=== PATIENT | male | born 1965 | race Asian ===

== ENCOUNTER 2017-06-14 21:04 | Emergency (ER) | payer OTHER ==
[2017-06-15 00:15] LABS: BASOPHIL % 0.3 % (0-2); PLATELET COUNT 193 x10^3mcL (130-400)
[2017-06-15 00:19] LABS: CALCIUM 9.1 mg/dL (8.5-10.1); CARBON DIOXIDE 29.7 mmol/L (21-32); CREATININE SERUM 1.4 mg/dL (0.7-1.3); POTASSIUM SERUM 4.4 mmol/L (3.5-5.1)
[2017-06-15 00:23] LABS: ALBUMIN 3.7 g/dL (3.4-5.0); BILIRUBIN TOTAL 0.7 mg/dL (0.20-1.00); TOTAL PROTEIN, SERUM 7.9 g/dL (6.4-8.2)
[2017-06-15 01:41] VITALS: BP 132/79
== END 2017-06-15 01:41 | disposition home or self-care (01) ==
LOC: ED 21:04
PROVIDERS: Emergency Medicine
DX: N23 Unspecified renal colic (principal); N28.9 Disorder of kidney and ureter, unspecified; N13.30 Unspecified hydronephrosis
CPT/HCPCS: J1885; J2270; J2405; J7030

== ENCOUNTER 2017-07-09 12:43 | Inpatient (IN) | payer OTHER ==
[~2017-07-09] VITALS: Ht 170.2 cm; Wt 66.8 kg
--- NOTE | 2017-07-09 13:45 | NUR ---
PT RETURNED TO LOBBY PENDING ROOM AVAILABILITY. VSS. RESPS E/U. NO S/S OF DISTRESS NOTED. NIHSS 0. NO NEUROLOGICAL DEFICITS NOTED AT THIS TIME. 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 NO ARM DRIFTS. NO FACIAL DROOP.
--- NOTE | 2017-07-09 15:29 | NUR ---
PT AMULATORY TO BED 7 WITH STEADY GAIT C/O MEMORY LOSS. AWAITING DR GAITAN.
--- NOTE | 2017-07-09 15:40 | NUR ---
DR HENSON AT BEDSIDE.
--- NOTE | 2017-07-09 15:52 | NUR ---
BACK FROM CT
--- NOTE | 2017-07-09 15:55 | NUR ---
REPORT GIVEN TO ANTIONE, ENDORSED PT CARE ACCORDINGLY.
[2017-07-09 16:14] LABS: BASOPHIL % 0.4 % (0-2); PLATELET COUNT 232 x10^3mcL (130-400); RED CELL DISTRIBUTION WIDTH 13.1 % (11.5-14.5)
[2017-07-09 16:27] LABS: SODIUM SERUM 140 mmol/L (136-145)
[2017-07-09 16:28] LABS: CALCIUM 9.3 mg/dL (8.5-10.1); CARBON DIOXIDE 30.7 mmol/L (21-32); CHLORIDE SERUM 104 mmol/L (98-107); GFR1 > 60 mL/min; GLUCOSE SERUM 101 mg/dL (74-106); POTASSIUM SERUM 4.2 mmol/L (3.5-5.1)
[2017-07-09 16:30] LABS: TOTAL PROTEIN, SERUM 8.6 g/dL (6.4-8.2)
[2017-07-09 16:31] LABS: ALKALINE PHOSPHATASE 73 U/L (46-116); ALT/SGPT 31 U/L (16-63); AST/SGOT 21 U/L (15-37)
[2017-07-09] MEDS ORDERED: LIPITOR10 MG (16:31)
--- NOTE | 2017-07-09 16:38 | NUR ---
REPORT GIVEN TO JAIME
--- NOTE | 2017-07-09 17:19 | NUR ---
REC'D PT FROM ER VIA [facility]. PT IS AAOX3, CANNOT RECALL DATE AT THIS TIME. C/O MILD DIZZINESS. NO WEAKNESS NOTED. TELE #9 SR. DENIES PAIN. RESP EVEN AND UNLABORED. NO SOB NOTED. IV NOTED TO RAC. INTACT AND PATENT. ORIENTED PT TO CALL LIGHT. BED IN LOWEST POSITION. WILL ENDORSE TO PRIMARY RN.
[2017-07-09 17:30] VITALS: BP 145/82
[2017-07-09 17:34] LABS: MAGNESIUM 2.2 mg/dL (1.8-2.4); PHOSPHOROUS 3.7 mg/dL (2.5-4.9)
[2017-07-09 17:40] LABS: CHOLESTEROL/HDL RATIO 3.2
--- NOTE | 2017-07-09 17:40 | NUR ---
RECEIVED REPORT FROM ALEJANDRO YING ASSUMING PT CARE RESPONSABILITY. RESTING COMFORTABLY AT THIS TIME. DENIES ANY DISCOMFORT. REPORTS SOME LIGHT HEADEDNESS, INSTRUCTED NOT TO GET OOB UNASSISTED. URINAL PLACED AT BEDSIDE. CALL LIGHT IN REACH NEEDS ATTENDED TO.
[2017-07-09 17:43] LABS: T3 TOTAL 1.13 ng/mL
[2017-07-09 18:13] LABS: FREE T4 1.05 ng/dL (0.76-1.46); FREE THYROXINE INDEX 3.2 ug/dL (1.4-4.5); T4(THYROXINE) 9.5 ug/dL (4.7-13.3)
--- NOTE | 2017-07-09 18:45 | NUR ---
PT RESTING AT THIS TIME. DENIES ANY DISCOMFORT AT THIS TIME. CALL LIGHT IN REACH NEEDS ATTENDED TO.
--- NOTE | 2017-07-09 19:35 | NUR ---
PT IS A/O X3, NAME, PLACE AND REASON TO COME TO HOSPITAL BUT DON'T RECALL THE YEAR, PT STATE HE HAD SAME PROBLEM ONCE BEFORE, NEURO CHECK DONE, PT HAS NO FACIAL DROOP NOTED, PUPIL EQUAL REACT TO LIGHT, NO WEAKNESS NOTED ON ALL EXTREMITIES, PT IS ON TELE 9, NSR, DENY ANY CHEST PAIN OR DISCOMFORT, BOWEL SOUND PRESENT ALL 4 QUADRANTS, NO DISTENTION, NO TENDER. PEDAL PULSE PRESENT BOTH FEET, NO EDEMA, IV AT RIGHT AC, NO LEAKING, NO INFILTRATION. ALL ADLS ASSIST, ALL NEED MET, CALL LIGHT IN REACH, WILL CONTINUE TO MONITOR.
--- NOTE | 2017-07-09 19:55 | NUR ---
TALKED TO DR. LIRIANO, REGARDING THE LIPITOR ORDER AT 1900 AND 2100, STATE SHE WANT PT TO TAKE 80MG LIPTIO AT 1900 TONIGHT AND START 40 MG AT 2100 TOMORROW, ORDER RECIEVED AND CARRIED OUT. WILL CONTINUE TO MONITOR THE PT.
[2017-07-09 23:05] LABS: UA SPECIFIC GRAVITY 1.015 (1.005-1.035); microscopic required? YES; urine erythrocyte 2+ (NEGATIVE)
--- NOTE | 2017-07-10 05:12 | NUR ---
PT IS A/O X4, NO FACIAL DROOPING, PUPIL EQUAL REACT TO LIGHT, NO WEAKNESS NOTED, PT C/O MILD HEADAHCE, TYLENOL IS GIVEN. DENY ANY RESPIRATORY DISTRESS, IV AT RIGHT AC, NO LEAKING, NO INFILTRATION. ALL ADLS ASSIST, ALL NEED MET, CALL LIGHT IN REACH, WILL CONTINUE TO MONITOR.
[2017-07-10 05:51] VITALS: BP 114/68
--- NOTE | 2017-07-10 07:38 | NUR ---
RECEIVED PT LAYING IN BED ASLEEP. NO APPARENT SIGNS OF ACUTE DISTRESS NOTED. RESPIRATIONS EVEN AND UNLABORED. IV TO RAC APPEARS PATENT AND INFUSING WELL NO SIGNS OF SWELLING OR REDNESS. INFORMATION BOARD UPDATED. CALL LIGHT WITHIN REACH. BED IN LOWEST POSITION. WILL CONTINUE TO MONITOR
--- NOTE | 2017-07-10 08:45 | NUR ---
AM ROUNDS DONE. PER DR. YOO, PT WILL PROBABLY D/C TOMORROW AND STAY FOR CONTINUED MONITORING. WILL DO CONTINUED DIAGNOSTIC TESTING THORUGHOUT THE DAY. PT AAOx4. CALL LIGHT WITHIN REACH. BED IN LOWEST POSITION. WILL CONTINUE TO MONITOR
[2017-07-10 09:18] VITALS: BP 127/72
[2017-07-10 12:48] VITALS: BP 121/74
--- NOTE | 2017-07-10 16:38 | NUR ---
PT SITTING IN BED CALM AND QUIETLY. DENIES PAIN. ADMITS TO SLIGHT LIGHTHEADEDNESS. SPOKE TO DR. RATLIFF WHO IS COVERING FOR DR. MONTALVO, AND INQUIRED ABOUT PLAN OF CARE OR ANY OTHER TESTS THAT MAY BE SCHEDULED FOR THE PT. HE STATED HE WOULD LOOK INTO IT. RELAYED THE MESSAGE TO PT. VERBALIZED HIS UNDERSTANDING. CALL LIGHT WITHIN REACH. BED IN LOWEST POSITION. WILL CONTINUE TO MONITOR
[2017-07-10 17:37] VITALS: BP 116/77
--- NOTE | 2017-07-10 20:39 | NUR ---
RECEIVED PT IN BED AAOX4, PT DENY PAIN AT THE MOMENT , LUNG SOUNDS CTA , ABD SOFT BS ACTIVE X4 QUADRANT , PT'S ON TELE NUMBER 9 THAT SHOWS NSR , CALL LIGHT WITHIN PT'S REACH , WILL CON'T TO MONITOR AND ASSIST PT WITH CARE .
--- NOTE | 2017-07-10 20:55 | NUR ---
PATIENT'S PLAN OF CARE WAS DISCUSSED AND REVIEWED WITH SUPERVISOR PAPER TESTING: PATTY PENA I HAVE REVIEWED THE DATA COLLECTION BY SUPERVISOR PAPER TESTING (NAME): PATTY PENA ENTERED ON (DATE/TIME): 07/10 2038 I CONCUR WITH THE DATA AND ANY EXCEPTIONS OR COMMENTS ARE LISTED BELOW:
[2017-07-10 21:50] VITALS: BP 135/67
[2017-07-11 05:09] VITALS: BP 108/62
--- NOTE | 2017-07-11 06:26 | NUR ---
NO CHANGES OF CONDITION NOTED , ALL DUE MEDS GIVEN NO REACTION NOTED, PIV INTACT INFUSING WELL , TELE NSR .
[2017-07-11 07:49] LABS: BASOPHIL % 0.6 % (0-2); PLATELET COUNT 163 x10^3mcL (130-400); RED CELL DISTRIBUTION WIDTH 13.1 % (11.5-14.5)
--- NOTE | 2017-07-11 07:55 | NUR ---
AWAKE,ALERT AND ORIENTED. DENIES ANY PAIN NO WEAKNESS NOTED. AMBULATED IN THE BATHROOM AND VOIDING WELL. CALL LIGHT W/ IN REACH.ATE BREAKFAST WELL. NO ACUTE DISTRESS NOTED. WILL CONT. PLAN OF CARE.
[2017-07-11 08:09] LABS: CALCIUM 8.8 mg/dL (8.5-10.1); CARBON DIOXIDE 29.3 mmol/L (21-32); CHLORIDE SERUM 106 mmol/L (98-107); CREATININE SERUM 0.9 mg/dL (0.7-1.3); GFR1 > 60 mL/min; GLUCOSE SERUM 91 mg/dL (74-106); MAGNESIUM 2.1 mg/dL (1.8-2.4); PHOSPHOROUS 3.5 mg/dL (2.5-4.9); POTASSIUM SERUM 4.3 mmol/L (3.5-5.1); SODIUM SERUM 141 mmol/L (136-145)
--- NOTE | 2017-07-11 09:30 | NUR ---
DR. HARMAN WAS HERE AND SEEN THE PT. AND MADE ROUNDS W/ OTHER MEDICAL STAFF AND UPDATED PT. PLAN OF CARE.
[2017-07-11] MEDS ORDERED: ECO81 PO (09:50)
[2017-07-11 10:39] VITALS: BP 123/85
--- NOTE | 2017-07-11 12:30 | NUR ---
DENIES ANY PAIN NO DIZZINESS ,NO WEAKNESS NOTED.AMBULATORY,ORIENTED X 4 .NO ACUTE DISTRESS NOTED.
[2017-07-11 13:05] VITALS: BP 123/85
--- NOTE | 2017-07-11 15:10 | NUR ---
PT. WENT HOME W/ STABLE CONDITION PER W/C ACC. W/ HIS DAUGHTER,DISCHARGED INSTRUCTIONS AND PRESCRIPTION GIVEN AND DISCUSSED TO PT. AND VERBALIZED UNDERSTANDING OF INSTRUCTIONS GIVEN NO ACUTE DISTRESS NOTED.ESCORTED BY LORA IN THE LOBBY.
== END 2017-07-11 15:05 | disposition home or self-care (01) | DRG 47 ==
LOC: ED 12:43 → DU 16:12
PROVIDERS: Emergency Medicine; Family Medicine; ADMIT Student in an Organized Health Care Education/Training Program
DX: G45.9 Transient cerebral ischemic attack, unspecified (principal); G90.9 Disorder of the autonomic nervous system, unspecified; E78.5 Hyperlipidemia, unspecified; G45.4 Transient global amnesia; R73.03 Prediabetes; K80.20 Calculus of gallbladder without cholecystitis without obstruction; Z68.23 Body mass index [BMI] 23.0-23.9, adult; K21.9 Gastro-esophageal reflux disease without esophagitis
CPT/HCPCS: 83880; 84439; J7030; Q0092